=== PATIENT | female | born 1975 | race Caucasian/White ===

== ENCOUNTER 2017-05-14 05:04 | Emergency (ER) | payer BC ==
[2017-05-14] MEDS ORDERED: ALBUTEROL 2.5 MG/3 ML NEB SOL ONE ×2 (05:56→06:36)
[2017-05-14] MEDS ORDERED: IPRATROPIUM BROM 0.5MG/2.5ML ONE (05:56)
--- NOTE | 2017-05-14 06:22 | ER ---
Nurse's Notes [facility] Name: Alexandra Valdez Age: 41 yrs Sex: Female : 1975 Arrival Date: 05/14/2017 Time: 05:07 Bed 14 Private MD: Diagnosis: Asthma exacerbation. GERD Presentation: 05/14 05:10 Presenting complaint: Patient states: that in Jan she got sick with resp infection. Was fc seen by PCP and given Prednisone and antibiotics. She got better but just for a short time. When she got sick again she went to [place]. Was again told she had URI and given antibiotics, Flonase and inhaler. She continues to have cough, congestion, shortness of breath and hoarseness. Transition of care: patient was not received from another setting of care. Onset of symptoms was January 2017. Care prior to arrival: None. 05:10 Method Of Arrival: Ambulatory fc 05:10 Acuity: MAIKOL 4 fc Historical: - Allergies: 05:28 No Known Allergies; fc - Home Meds: 05:28 phentermine 37.5 mg oral tab 1 tab once daily [Active]; fc - PMHx: 05:28 None; fc - PSHx: 05:28 ; fc - Immunization history:: Last tetanus immunization: up to date Hepatitis A vaccine is not up to date. - Social history:: Smoking status: Patient uses tobacco products, denies chronic smoking, but will smoke occasionally, Patient uses alcohol, but reports only rare drinking. Screenin:29 Abuse screen: Denies threats or abuse. Nutritional screening: No deficits noted. Tuberculosis screening: No symptoms or risk factors identified. Fall Risk None identified. Assessment: 05:30 General: Appears in no apparent distress. comfortable, Behavior is calm, cooperative, aa1 appropriate for age. Pain: Denies pain. Neuro: Level of Consciousness is awake, alert, obeys commands, Oriented to person, place, time, situation. Cardiovascular: Heart tones S1 S2 present Rhythm is regular. Respiratory: Reports cough that is non-productive, since 2 months Airway is patent Respiratory effort is even, unlabored, Respiratory pattern is regular, symmetrical, Breath sounds are clear bilaterally. GI: No signs and/or symptoms were reported involving the gastrointestinal system. : No signs and/or symptoms were reported regarding the genitourinary system. EENT: No signs and/or symptoms were reported regarding the EENT system. Derm: Skin is intact, is healthy with good turgor, Skin is pink, warm \T\ dry. Musculoskeletal: Capillary refill < 3 seconds. 06:36 Reassessment: Patient appears in no apparent distress at this time. Patient is alert, aa1 oriented x 3, equal unlabored respirations, skin warm/dry/pink. Discussed d/c \T\ f/u instructions with pt; denies questions or concerns Patient states feeling better. Patient states symptoms have improved. Vital Signs: 05:10 BP 119 / 86; Pulse 92; Resp 18; Temp 97.8(O); Pulse Ox 93% on R/A; Weight 74.84 kg (R); fc Height 5 ft. 4 in. (162.56 cm) (R); Pain 0/10; 06:36 BP 121 / 82; Pulse 89; Resp 20; Pulse Ox 98% on R/A; aa1 05:10 Body Mass Index 28.32 (74.84 kg, 162.56 cm) ED Course: 05:07 Patient arrived in ED. es 05:10 Arm band placed on right wrist. Patient placed in an exam room, on a stretcher. fc 05:27 Triage completed. fc 05:29 Patient has correct armband on for positive identification. Bed in low position. Call fc light in reach. Side rails up X 1. 05:29 No provider procedures requiring assistance completed. fc 05:37 Destiny Coles, RN is Primary Nurse. aa1 05:52 X-ray completed. Portable x-ray completed in exam room. Patient tolerated procedure kw well. 05:52 Casey Barrett MD is Attending Physician. pkl 05:53 CXR XRAY In Process Unspecified. EDMS 06:05 Casey Barrett MD is Attending Physician. pkl 06:21 Maninder Ellison MD is Referral Physician. pkl 06:36 Patient did not have IV access during this emergency room visit. aa1 Administered Medications: 05:41 Drug: Albuterol - atroVENT (3:1) (2.5 mg - 0.5 mg) 3 ml Route: Nebulizer; aa1 06:35 Follow up: Response: No adverse reaction; Marked relief of symptoms aa1 06:21 Drug: Albuterol 2.5 mg Route: Inhalation; aa1 06:21 Drug: predniSONE 40 mg Route: PO; aa1 06:35 Follow up: Response: No adverse reaction; Marked relief of symptoms aa1 Outcome: 06:22 Discharge ordered by . kylee 06:36 Discharged to home ambulatory, with significant other. aa1 06:36 Condition: good 06:36 Condition: good 06:36 Condition: good 06:36 Discharge instructions given to patient, significant other, Instructed on discharge instructions, follow up and referral plans. medication usage, Demonstrated understanding of instructions, follow-up care, medications, Prescriptions given X 3. 06:38 Patient left the ED. aa1 Signatures: Dispatcher [employer] Destiny Larson RN RN aa1 Casey Barrett MD MD pkl Salyer, Edna es Chretien, Felicia RN RN Carmen Wallace
--- NOTE | 2017-05-14 06:22 | EDPHYS ---
Physician Documentation [facility] Name: Alexandra Valdez Age: 41 yrs Sex: Female : 1975 Arrival Date: 05/14/2017 Time: 05:07 Bed 14 Private MD: ED Physician Casey Barrett HPI: 05/14 06:16 This 41 yrs old Female presents to ER via Ambulatory with complaints of pkl Breathing Difficulty, Congestion, Laryngititis. 06:16 The patient has shortness of breath at rest. Onset: The symptoms/episode began/occurred pkl 2 month(s) ago, and became worse just prior to arrival. Associated signs and symptoms: Pertinent positives: non-productive cough, hoarseness . The patient has been recently seen by a physician: the patient's primary care provider, Angélica DALLAS. Historical: - Allergies: 05:28 No Known Allergies; fc - Home Meds: 05:28 phentermine 37.5 mg oral tab 1 tab once daily [Active]; fc - PMHx: 05:28 None; fc - PSHx: 05:28 ; fc - Immunization history:: Last tetanus immunization: up to date Hepatitis A vaccine is not up to date. - Social history:: Smoking status: Patient uses tobacco products, denies chronic smoking, but will smoke occasionally, Patient uses alcohol, but reports only rare drinking. ROS: 06:16 Eyes: Negative for injury, pain, redness, and discharge. pkl 06:16 ENT: Positive for hoarseness. 06:16 Neck: Negative for stiffness, acute changes. 06:16 Cardiovascular: Negative for chest pain. 06:16 Respiratory: Positive for cough, with no reported sputum, wheezing. 06:16 Abdomen/GI: Negative for abdominal pain, nausea, vomiting, and diarrhea. 06:16 Back: Negative for acute changes. 06:16 : Negative for urinary symptoms. 06:16 MS/extremity: Negative for acute changes. 06:16 Skin: Negative for rash. 06:16 Neuro: Negative for altered mental status. Exam: 06:16 Head/Face: Normocephalic, atraumatic. Eyes: Pupils equal round and reactive to light, pkl extra-ocular motions intact. Lids and lashes normal. Conjunctiva and sclera are non-icteric and not injected. Cornea within normal limits. Periorbital areas with no swelling, redness, or edema. ENT: Nares patent. No nasal discharge, no septal abnormalities noted. Tympanic membranes are normal and external auditory canals are clear. Oropharynx with no redness, swelling, or masses, exudates, or evidence of obstruction, uvula midline. Mucous membranes moist. Neck: Trachea midline, no thyromegaly or masses palpated, and no cervical lymphadenopathy. Supple, full range of motion without nuchal rigidity, or vertebral point tenderness. No Meningismus. Chest/axilla: Normal chest wall appearance and motion. Nontender with no deformity. No lesions are appreciated. Cardiovascular: Regular rate and rhythm with a normal S1 and S2. No gallops, murmurs, or rubs. Normal PMI, no JVD. No pulse deficits. 06:16 Respiratory: the patient does not display signs of respiratory distress, Respirations: normal, Breath sounds: bronchial sounds, that are mild, are scattered, rhonchi, that are mild, are scattered. 06:16 Abdomen/GI: Bowel sounds: normal, Palpation: abdomen is soft and non-tender, in all quadrants. 06:16 Back: Exam negative for acute changes. 06:16 : Exam negative for acute changes. 06:16 Musculoskeletal/extremity: Exam is negative for acute changes. 06:16 Skin: Exam negative for rash. 06:16 Neuro: Orientation: is normal, Mentation: is normal, Cranial nerves: grossly normal, Motor: is normal. Vital Signs: 05:10 BP 119 / 86; Pulse 92; Resp 18; Temp 97.8(O); Pulse Ox 93% on R/A; Weight 74.84 kg (R); fc Height 5 ft. 4 in. (162.56 cm) (R); Pain 0/10; 06:36 BP 121 / 82; Pulse 89; Resp 20; Pulse Ox 98% on R/A; aa1 05:10 Body Mass Index 28.32 (74.84 kg, 162.56 cm) fc MDM: 05:52 Patient medically screened. pkl 06:20 Data reviewed: vital signs, nurses notes, radiologic studies, plain films. pkl 06:22 Patient medically screened. pkl 05/14 05:38 Order name: CXR XRAY aa1 Administered Medications: 05:41 Drug: Albuterol - atroVENT (3:1) (2.5 mg - 0.5 mg) 3 ml Route: Nebulizer; aa1 06:35 Follow up: Response: No adverse reaction; Marked relief of symptoms aa1 06:21 Drug: Albuterol 2.5 mg Route: Inhalation; aa1 06:21 Drug: predniSONE 40 mg Route: PO; aa1 06:35 Follow up: Response: No adverse reaction; Marked relief of symptoms aa1 Disposition: 05/14/17 06:22 Discharged to Home. Impression: Asthma exacerbation. GERD. - Condition is Fair. - Prescriptions for Albuterol Sulfate 2.5 mg /3 mL (0.083 %) Inhalation Solution for Nebulization - inhale 1 unit by NEBULIZATION route every 8 hours As needed; 1 box. Protonix 40 mg Oral Tablet, Delayed Release (E.C.) - take 1 tablet by ORAL route once daily; 15 tablet. - Medication Reconciliation Form, Thank You Letter, Antibiotic Education, Prescription Opioid Use form. - Follow up: Maninder Ellison MD; When: 2 - 3 days; Reason: Re-evaluation by your physician. - Problem is new. - Symptoms have improved. Signatures: Dispatcher [employer] EDDestiny Poon RN RN aa1 Casey Barrett MD MD pkl Chretien, Felicia, RN RN
[2017-05-14] MEDS ORDERED: predniSONE 20 MG TAB ONE (06:37)
[2017-05-14 06:43] VITALS: TEMP 97.8
[2017-05-14 06:44] VITALS: BP 121/82; O2SAT 98
--- NOTE | 2017-05-14 09:05 | RAD REPORT ---
EXAM DESCRIPTION: RAD - Chest Single View - 05/14/2017 6:50 am CLINICAL HISTORY: Cough COMPARISON: None. TECHNIQUE: AP portable chest image was obtained 0548 hours the . FINDINGS: Lungs are clear. Heart and vasculature are normal. No measurable pleural effusion and no p neumothorax. No gross bony abnormality seen. No acute aortic findings suspected. IMPRESSION: No acute cardiopulmonary process.
== END 2017-05-14 06:38 | disposition home or self-care (01) ==
LOC: ER 05:04
DX: J45.901 Unspecified asthma with (acute) exacerbation (principal); K21.9 Gastro-esophageal reflux disease without esophagitis; Z72.0 Tobacco use
CPT/HCPCS: 71045; 94640; 99284; J7512

== ENCOUNTER 2019-11-07 00:24 | Emergency (ER) | payer BC ==
[2019-11-07] MEDS ORDERED: HYDROCODONE/APAP 5/325 MG TAB ONE (01:08)
[2019-11-07] MEDS ORDERED: MORPHINE 4 MG/ML SYR ONE (02:16)
--- NOTE | 2019-11-07 05:09 | ER ---
Nurse's Notes [facility] Name: Alexandra Valdez Age: 44 yrs Sex: Female : 1975 Arrival Date: 11/07/2019 Time: 00:28 Bed 24 Private MD: Diagnosis: Contusion right elbow Presentation: 11/06 00:40 Chief complaint: Patient states: she fell approx 30-45 minutes ago on her outstretched bb right arm and thinks she broke her elbow. Coronavirus screen: At this time, the client does not indicate any symptoms associated with coronavirus-19. Ebola Screen: No symptoms or risks identified at this time. Initial Sepsis Screen: Does the patient meet any 2 criteria? No. Patient's initial sepsis screen is negative. Does the patient have a suspected source of infection? No. Patient's initial sepsis screen is negative. Risk Assessment: Do you want to hurt yourself or someone else? Patient reports no desire to harm self or others. Onset of symptoms was November 07, 2019. 00:40 Method Of Arrival: Ambulatory bb 00:40 Acuity: MAIKOL 4 bb Triage Assessment: 00:42 Musculoskeletal: Capillary refill < 3 seconds, pt able to move right fingers, radial bb pulse palpable. Injury Description: fall. 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 Screenin:40 Abuse screen: Denies threats or abuse. Denies injuries from another. Nutritional sg screening: No deficits noted. Tuberculosis screening: No symptoms or risk factors identified. Never had TB. Fall Risk None identified. Assessment: 00:40 General: Appears in no apparent distress. well groomed, well developed, well nourished, sg Behavior is calm, cooperative, appropriate for age. General: Smells of alcohol. Pain: Complains of pain in right elbow Quality of pain is described as aching. Neuro: Level of Consciousness is awake, alert, obeys commands, Oriented to person, place, time, Facial symmetry appears normal. Cardiovascular: Capillary refill is brisk in bilateral fingers Patient's skin is warm and dry. Chest pain is denied. Respiratory: Airway is patent Respiratory effort is even, unlabored, Respiratory pattern is regular, symmetrical. GI: No signs and/or symptoms were reported involving the gastrointestinal system. : No signs and/or symptoms were reported regarding the genitourinary system. EENT: No signs and/or symptoms were reported regarding the EENT system. Derm: Skin is pink, warm \T\ dry. Musculoskeletal: Circulation, motion, and sensation intact. Range of motion: limited in right elbow Swelling present in right arm Reports pain in right arm. 00:46 Reassessment: awaiting evaluation by ERP, awaiting orders at this time, pt stated sg understanding, call light within reach, SRx1, bed in low and locked position. 02:02 Reassessment: at bedside re examining pt at this time, updated on xray results, sg pt continues to complain of pain and limited mobility upon exam by the ERP, a v/o for CT right elbow w/out contrast has been entered, and Morphine 4 mg IM to be administered for pt pain at this time, see EMAR. 04:39 Reassessment: Patient appears in no apparent distress at this time. Patient and/or fu family updated on plan of care and expected duration. Pain level reassessed. Patient is alert, oriented x 3, equal unlabored respirations, skin warm/dry/pink. Patient subsided after receiving Morphine Patient states feeling better. Vital Signs: 00:40 BP 109 / 82; Pulse 90; Resp 16 S; Temp 98.2(O); Pulse Ox 99% on R/A; Weight 90.72 kg bb (R); Height 5 ft. 4 in. (162.56 cm) (R); Pain 8/10; 02:00 BP 112 / 79; Pulse 82; Resp 16; Pulse Ox 100% on R/A; Pain 3/10; fu 03:00 BP 114 / 77; Pulse 75; Resp 15; Pulse Ox 95% on R/A; fu 04:30 BP 111 / 76; Pulse 75; Resp 16; Pulse Ox 94% on R/A; fu 00:40 Body Mass Index 34.33 (90.72 kg, 162.56 cm) ED Course: 00:28 Patient arrived in ED. cl3 00:31 Casey Barrett MD is Attending Physician. pkl 00:40 Arm band placed on. sg 00:40 Patient has correct armband on for positive identification. Bed in low position. Call sg light in reach. Side rails up X2. Pulse ox on. NIBP on. Elevated right arm. 00:41 Triage completed. bb 00:42 Ramakrishna Palm, RN is Primary Nurse. sg 00:43 Affected limb iced. 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 sg 00:45 No provider procedures requiring assistance completed. Sling applied to right arm. sg applied by pt/pt family NEEDLE LOOM OPERATOR HELPER. 01:13 Awaiting for x-ray. sg 01:17 Awaiting radiology results. sg 01:50 XRAY Elbow RIGHT 3 view In Process Unspecified. EDMS 02:[address] Scan. sg 03:17 Tim Mcneal, RN is Primary Nurse. fu 04:26 Elbow Right Wo Con In Process Unspecified. EDMS 05:15 Patient did not have IV access during this emergency room visit. fu Administered Medications: 01:00 Drug: [place] 5 mg-325 mg 1 tabs Route: PO; sg 02:00 Follow up: Response: No adverse reaction; Pain is unchanged, physician notified; RASS: sg Restless (+1) 02:09 Drug: morphine 4 mg Route: IM; Site: right deltoid; sg 03:08 Follow up: Response: No adverse reaction; Pain is decreased sg Outcome: 05:09 Discharge ordered by . pkl 05:20 Patient left the ED. mw2 05:23 Discharged to home ambulatory. fu 05:23 Condition: good 05:23 Discharge instructions given to patient, Instructed on discharge instructions, Demonstrated understanding of instructions, Prescriptions given X 1. Signatures: Dispatcher [employer] EDMS Ramakrishna Palm RN RN sg Lam, Pin, MD MD pkClaire Christine RN RN bb Umadhay, Felix, RN RN fu [place], MyKena mw2 Marley Alvarez cl3 Corrections: (The following items were deleted from the chart) 00:55 00:40 Pain: Complains of pain in right wrist Quality of pain is described as aching, sg sg 00:55 00:40 Musculoskeletal: Circulation, motion, and sensation intact. Range of motion: sg limited in right wrist Swelling present in right arm Reports pain in right arm sg
--- NOTE | 2019-11-07 05:10 | EDPHYS ---
Physician Documentation [facility] Name: Alexandra Valdez Age: 44 yrs Sex: Female : 1975 Arrival Date: 11/07/2019 Time: 00:28 Bed 24 Private MD: ED Physician Casey Barrett HPI: 11/06 00:54 This 44 yrs old Female presents to ER via Ambulatory with complaints of Arm pkl Injury. 00:55 The patient or guardian complains of injury. The complaints affect the right elbow. pkl Context: resulted from a fall. Onset: The symptoms/episode began/occurred just prior to arrival. 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 ROS: 00:55 Eyes: Negative for injury, pain, redness, and discharge, ENT: Negative for injury, pkl pain, and discharge, Neck: Negative for injury, pain, and swelling, Cardiovascular: Negative for chest pain, palpitations, and edema, Respiratory: Negative for shortness of breath, cough, wheezing, and pleuritic chest pain, Abdomen/GI: Negative for abdominal pain, nausea, vomiting, diarrhea, and constipation, Back: Negative for injury and pain, : Negative for injury, bleeding, discharge, and swelling. 00:55 MS/extremity: Positive for injury or acute deformity, pain, tenderness, of the right elbow. 00:55 Skin: Negative for rash. 00:55 Neuro: Negative for altered mental status. Exam: 00:55 Head/Face: Normocephalic, atraumatic. Eyes: Pupils equal round and reactive to light, pkl extra-ocular motions intact. Lids and lashes normal. Conjunctiva and sclera are non-icteric and not injected. Cornea within normal limits. Periorbital areas with no swelling, redness, or edema. ENT: Nares patent. No nasal discharge, no septal abnormalities noted. Tympanic membranes are normal and external auditory canals are clear. Oropharynx with no redness, swelling, or masses, exudates, or evidence of obstruction, uvula midline. Mucous membranes moist. Neck: Trachea midline, no thyromegaly or masses palpated, and no cervical lymphadenopathy. Supple, full range of motion without nuchal rigidity, or vertebral point tenderness. No Meningismus. Chest/axilla: Normal chest wall appearance and motion. Nontender with no deformity. No lesions are appreciated. Cardiovascular: Regular rate and rhythm with a normal S1 and S2. No gallops, murmurs, or rubs. Normal PMI, no JVD. No pulse deficits. Respiratory: Lungs have equal breath sounds bilaterally, clear to auscultation and percussion. No rales, rhonchi or wheezes noted. No increased work of breathing, no retractions or nasal flaring. Abdomen/GI: Soft, non-tender, with normal bowel sounds. No distension or tympany. No guarding or rebound. No evidence of tenderness throughout. Back: No spinal tenderness. No costovertebral tenderness. Full range of motion. Skin: Warm, dry with normal turgor. Normal color with no rashes, no lesions, and no evidence of cellulitis. Neuro: Awake and alert, GCS 15, oriented to person, place, time, and situation. Cranial nerves II-XII grossly intact. Motor strength 5/5 in all extremities. Sensory grossly intact. Cerebellar exam normal. Normal gait. 00:55 Musculoskeletal/extremity: Extremities: grossly normal except: noted in the right elbow: pain, tenderness. Vital Signs: 00:40 BP 109 / 82; Pulse 90; Resp 16 S; Temp 98.2(O); Pulse Ox 99% on R/A; Weight 90.72 kg bb (R); Height 5 ft. 4 in. (162.56 cm) (R); Pain 8/10; 02:00 BP 112 / 79; Pulse 82; Resp 16; Pulse Ox 100% on R/A; Pain 3/10; fu 03:00 BP 114 / 77; Pulse 75; Resp 15; Pulse Ox 95% on R/A; fu 04:30 BP 111 / 76; Pulse 75; Resp 16; Pulse Ox 94% on R/A; fu 00:40 Body Mass Index 34.33 (90.72 kg, 162.56 cm) bb MDM: 00:32 Patient medically screened. pkl 05:08 Data reviewed: vital signs, nurses notes, radiologic studies, CT scan, plain films. pkl 11/06 00:54 Order name: XRAY Elbow RIGHT 3 view sg 11/06 03:45 Order name: Elbow Right Wo Con EDMS 11/06 05:11 Order name: Celeste; Complete Time: 05:12 pkl Administered Medications: 01:00 Drug: [place] 5 mg-325 mg 1 tabs Route: PO; sg 02:00 Follow up: Response: No adverse reaction; Pain is unchanged, physician notified; RASS: sg Restless (+1) 02:09 Drug: morphine 4 mg Route: IM; Site: right deltoid; sg 03:08 Follow up: Response: No adverse reaction; Pain is decreased sg Disposition: 11/07/19 05:09 Discharged to Home. Impression: Contusion right elbow. - Condition is Stable. - Prescriptions for Diclofenac Sodium 75 mg Oral Tablet, Delayed Release (E.C.) - take 1 tablet by ORAL route 2 times per day; 20 tablet. - Medication Reconciliation Form, Thank You Letter, Antibiotic Education, Prescription Opioid Use form. - Follow up: Private Physician; When: 2 - 3 days; Reason: Re-evaluation by your physician. - Problem is new. - Symptoms have improved. Signatures: Dispatcher [employer] EDMS Ramakrishna Palm RN RN sg Lam, Pin, MD MD pkClaire Christine RN RN Darshan Quinn mw2 Corrections: (The following items were deleted from the chart) 04:21 02:02 CT RIGHT ELEBOW WO CONTRAST ordered. EDMN EDMS 04:22 03:20 CT RIGHT ELEBOW WO CONTRAST ordered. EDMN EDMS 05:20 05:09 11/07/2019 05:09 Discharged to Home. Impression: Contusion right elbow. Condition mw2 is Stable. Forms are Medication Reconciliation Form, Thank You Letter, Antibiotic Education, Prescription Opioid Use. Follow up: Private Physician; When: 2 - 3 days; Reason: Re-evaluation by your physician. Problem is new. Symptoms have improved. pkl
--- NOTE | 2019-11-07 15:32 | RAD REPORT ---
EXAM DESCRIPTION: CT - Elbow Right Wo Con - 11/07/2019 7:15 am CLINICAL HISTORY: 44 years Female, PAIN COMPARISON: None Available. TECHNIQUE: CT of the right elbow without IV contrast. Evaluation of the soft tissues and vascula ture is suboptimal due to lack of IV contrast. FINDINGS: Soft tissue: Mild soft tissue edema. No definite joint effusion. Bones: The distal humerus is intact. The proximal ulna is intact. The proximal radius and radial head are intact. IMPRESSION: 1. No acute fracture or dislocation. This exam was performed according to our departmental dose-optimization program, which includes autom ated exposure control, adjustment of the mA and/or kV according to patient size and/or use of iterati ve reconstruction technique. Electronically signed by: Bony Gaytan 11/07/2019 4:52 AM CDT Due to temporary technical issues with the PACS/Fluency reporting system, reports are being signed by the in house radiologist without review as a courtesy to ensure prompt reporting. The interpreting r adiologist is fully responsible for the content of the report.
--- NOTE | 2019-11-07 15:34 | RAD REPORT ---
EXAM DESCRIPTION: RAD - Elbow Right 3 View - 11/07/2019 1:50 am CLINICAL HISTORY: PAIN Elbow Right 3 View COMPARISON: None. FINDINGS: 3 radiographic views of the right elbow. No acute fracture or dislocation. Normal osseous mineralization. No definite joint effusion. IMPRESSION: 1. No acute fracture or dislocation. Electronically signed by: Bony Gaytan 11/07/2019 4:53 AM CDT Due to temporary technical issues with the PACS/Fluency reporting system, reports are being signed by the in house radiologist without review as a courtesy to ensure prompt reporting. The interpreting r adiologist is fully responsible for the content of the report.
[2019-11-07 15:55] VITALS: TEMP 98.2
[2019-11-07 15:58] VITALS: BP 111/76; O2SAT 94
== END 2019-11-07 05:20 | disposition home or self-care (01) ==
LOC: ER 00:24
DX: S50.01XA Contusion of right elbow, initial encounter (principal); W19.XXXA Unspecified fall, initial encounter
CPT/HCPCS: 73200; 96372; 99284

== ENCOUNTER 2022-10-11 21:17 | Inpatient (IN) | payer BC ==
[2022-10-11] MEDS ORDERED: ONDANSETRON 4 MG/2 ML VIAL ONE (22:09)
[2022-10-11] MEDS ORDERED: NA CHLORIDE 0.9% 1,000 ML ONE (22:09)
[2022-10-11] MEDS ORDERED: MORPHINE 4 MG/ML SYR ONE ×2 (22:09→23:40)
--- NOTE | 2022-10-11 22:12 | RAD REPORT ---
EXAM DESCRIPTION: US - Abdomen Exam Limited - 10/11/2022 10:01 pm CLINICAL HISTORY: Abd pain;Constipation COMPARISON: No comparisons FINDINGS: The gallbladder demonstrates sludge and extensive gallbladder stones. No pericholecystic f luid or gallbladder wall thickening. The common bile duct is normal measuring 4 mm. The liver demonstrates no findings of intrahepatic biliary dilatation. IMPRESSION: Cholelithiasis.
[2022-10-11 22:15] LABS: Absolute Lymphocytes (CBC) 3.1 K/uL (0.7-4.9); Lymphocytes % 26.9 % (15.3-44.8); MCV 93.8 fL (80-100); MPV 8.4 fL (7.6-11.3); Platelets 328 thou/uL (152-406); RBC Red Blood Cell Count 4.69 M/uL (3.86-4.86)
--- NOTE | 2022-10-11 22:30 | RAD REPORT ---
EXAM DESCRIPTION: CTAbdomen Pelvis W Contrast - 10/11/2022 10:21 pm CLINICAL HISTORY: Abdominal pain. ABD PAIN COMPARISON: No comparisons TECHNIQUE: Biphasic CT imaging of the abdomen and pelvis was performed with 100 ml non-ionic IV cont rast. All CT scans are performed using dose optimization technique as appropriate and may include automated exposure control or mA/KV adjustment according to patient size. FINDINGS: The lung bases are clear. The liver, spleen, pancreas, adrenal glands and kidneys are within normal limits. Gallbladder distens ion. No bowel obstruction, free air, free fluid or abscess. Small fat containing umbilical hernia. The dia endix is not identified as a discrete structure, however, no secondary findings of appendicitis are i dentified. No evidence of significant lymphadenopathy. No suspicious bony findings. IMPRESSION: No acute intra-abdominal or pelvic finding. Gallbladder distension.
[2022-10-11 22:35] LABS: Bilirubin Total 0.8 mg/dL (0.2-1.0); Potassium 3.8 mEq/L (3.5-5.1); Protein, Total 7.7 g/dL (6.4-8.2)
--- NOTE | 2022-10-11 22:51 | ER ---
Nurse's Notes [facility] Name: Alexandra Valdez Age: 46 yrs Sex: Female : 1975 Arrival Date: 10/11/2022 Time: 21:17 Bed 14 Private MD: Diagnosis: Other cholelithiasis without obstruction;Abdominal pain, unspecified-intractable Presentation: 10/11 21:36 Chief complaint: Patient states: severe sudden onset right upper abdominal pain lg3 radiating to back. denies N/V/D. Coronavirus screen: Client denies travel out of the [place] in the last 14 days. At this time, the client does not indicate any symptoms associated with coronavirus-19. Ebola Screen: No symptoms or risks identified at this time. Initial Sepsis Screen: Does the patient meet any 2 criteria? No. Patient's initial sepsis screen is negative. Does the patient have a suspected source of infection? No. Patient's initial sepsis screen is negative. Risk Assessment: Do you want to hurt yourself or someone else? Patient reports no desire to harm self or others. Onset of symptoms was October 11, 2022. 21:36 Method Of Arrival: Ambulatory lg3 21:36 Acuity: MAIKOL 3 lg3 Triage Assessment: 21:38 General: Appears in no apparent distress. uncomfortable, Behavior is calm, cooperative. lg3 Pain: Complains of pain in right upper quadrant and left upper quadrant Pain radiates to back Pain currently is 10 out of 10 on a pain scale. EENT: No deficits noted. No signs and/or symptoms were reported regarding the EENT system. Neuro: No deficits noted. Flores Agitation-Sedation Scale (RASS): +1 Restless Level of Consciousness is awake, alert, obeys commands, Oriented to person, place, time, situation. Cardiovascular: No deficits noted. Denies chest pain, shortness of breath, Capillary refill < 3 seconds Clubbing of nail beds is absent JVD is absent Patient's skin is warm and dry. Respiratory: No deficits noted. Airway is patent Respiratory effort is even, unlabored, Respiratory pattern is regular, symmetrical. GI: Abdomen is round non-distended, Reports lower abdominal pain, constipation, gaseousness. : No deficits noted. No signs and/or symptoms were reported regarding the genitourinary system. Derm: No deficits noted. No signs and/or symptoms reported regarding the dermatologic system. Skin is intact, is healthy with good turgor, Skin is dry, Skin is normal, Skin temperature is warm. Musculoskeletal: No deficits noted. No signs and/or symptoms reported regarding the musculoskeletal system. Circulation, motion, and sensation intact. Range of motion: intact in all extremities. 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 - Social history:: Smoking status: Patient reports the use of cigarette tobacco products, smokes one-half pack cigarettes per day, Patient uses alcohol, occasionally. Patient/guardian denies using street drugs. - Family history:: not pertinent. - Hospitalizations: : No recent hospitalization is reported. Screenin:[facility] Fall Risk Assessment (Adult) History of falling in the last 3 months, ha1 including since admission No falls in past 3 months (0 pts) Confusion or Disorientation No (0 pts) Intoxicated or Sedated No (0 pts) Impaired Gait No (0 pts) Mobility Assist Device Used No (0 pt) Altered Elimination No (0 pt) Score/Fall Risk Level 0 - 2 = Low Risk Oriented to surroundings, Maintained a safe environment, Educated pt \T\ family on fall prevention, incl call for assistance when getting out of bed. Abuse screen: Denies threats or abuse. Denies injuries from another. Nutritional screening: No deficits noted. Tuberculosis screening: No symptoms or risk factors identified. Assessment: 21:41 General: Appears comfortable, Behavior is calm, cooperative. Pain: Complains of pain in ha1 abdomen Pain does not radiate. Pain currently is 10 out of 10 on a pain scale. Quality of pain is described as throbbing, Pain began suddenly, Is continuous. Neuro: Level of Consciousness is awake, alert, obeys commands, Oriented to person, place, time, situation. Cardiovascular: Patient's skin is warm and dry. Respiratory: Airway is patent Respiratory effort is even, unlabored, Respiratory pattern is regular, symmetrical. GI: Abdomen is round non-distended, Bowel sounds present X 4 quads. Abd is soft and non tender X 4 quads. Reports upper abdominal pain, constipation. Musculoskeletal: Circulation, motion, and sensation intact. Range of motion: intact in all extremities. 22:20 Reassessment: Patient and/or family updated on plan of care and expected duration. Pain ha1 level reassessed. Patient is alert, oriented x 3, equal unlabored respirations, skin warm/dry/pink. pain 5/10 Patient states feeling better. Patient states symptoms have improved. 10/12 07:00 Reassessment: See [facility] documentation. REPORT RECEIVED FROM WENDI ALEXIS. db Vital Signs: 10/11 21:36 BP 142 / 92; Pulse 74; Resp 17 S; Temp 97.6(O); Pulse Ox 100% ; Weight 81.65 kg (R); lg3 Height 5 ft. 4 in. (R); Pain 10/10; 21:50 BP 149 / 108; Pulse 64; Resp 17 S; Pulse Ox 100% on R/A; ha1 22:20 BP 139 / 83; Pulse 60; Resp 15 S; Pulse Ox 99% on R/A; ha1 21:36 Body Mass Index 30.90 (81.65 kg, 162.56 cm) lg3 21:36 Pain Scale: Adult lg3 ED Course: 21:20 Patient arrived in ED. ag3 21:26 Jason Walker MD is Attending Physician. rn 21:35 Inserted saline lock: 22 gauge in left antecubital area, using aseptic technique. Blood ha1 collected. 21:38 Triage completed. lg3 21:38 Arm band placed on right wrist. lg3 21:41 Patient has correct armband on for positive identification. Placed in gown. Bed in low ha1 position. Call light in reach. Side rails up X 1. 21:55 Laura Reyes RN is Primary Nurse. ha1 21:55 CBC with Diff Sent. ha1 21:55 CMP Sent. ha1 21:55 Lipase Sent. ha1 22:01 US Abdomen Limited In Process Unspecified. EDMS 22:23 CT Abd/Pelvis - IV Contrast Only In Process Unspecified. EDMS 22:50 Lanette Lin MD is Hospitalizing Provider. rn 10/12 07:00 Appears to be sleeping. db 07:00 Awaiting bed assignment. db 07:00 Provided Education on: ADMISSION. db 07:00 No provider procedures requiring assistance completed. Patient admitted, IV remains in db place. Administered Medications: 10/11 21:55 Drug: NS 0.9% IV 1000 ml Route: IV; Rate: 1 bolus; Site: left antecubital; ha1 21:55 Drug: Ondansetron IVP 4 mg Route: IVP; Site: left antecubital; ha1 22:20 Follow up: Response: No adverse reaction ha1 21:58 Drug: morphine IVP or IV 4 mg Route: IVP; Infused Over: 4 mins; Site: left antecubital; ha1 22:20 Follow up: Response: No adverse reaction; Pain is decreased; RASS: Alert and Calm (0) ha1 23:34 Drug: morphine IVP or IV 4 mg Route: IVP; Infused Over: 4 mins; Site: left antecubital; ha1 10/12 00:00 Follow up: Response: No adverse reaction; Pain is decreased; RASS: Alert and Calm (0) ha1 10/11 23:45 Drug: Rocephin IV 1 grams Route: IV; Rate: calculated rate; Site: left antecubital; ha1 23:57 Follow up: Response: No adverse reaction ha1 23:57 Drug: metroNIDAZOLE IVPB 500 mg Volume: 100 ml; Route: IVPB; Rate: 200 ml/hr; Infused ha1 Over: 30 mins; Site: left antecubital; 10/12 00:30 Follow up: Response: No adverse reaction; IV Status: Completed infusion; IV Intake: ha1 100ml Medication: 07:00 VIS not applicable for this client. db Intake: 00:30 IV: 100ml; Total: 100ml. ha1 Outcome: 10/11 22:51 Decision to Hospitalize by Provider. rn 10/12 07:00 Admitted to ER Hold. Please see [facility] for further documentation. db Condition: stable Instructed on the need for admit. 08:26 Patient left the ED. db Signatures: Dispatcher [employer] EDMS Jason Walker MD MD rn Gomez, Alice ag3 Gibson, Lacie, RN RN lg3 Laura Reyes RN RN ha1 Tawny Macedo RN RN db Corrections: (The following items were deleted from the chart) 10/11 22:52 22:50 Reassessment: Patient and/or family updated on plan of care and expected ha1 duration. Pain level reassessed. Patient is alert, oriented x 3, equal unlabored respirations, skin warm/dry/pink. pain 5/10 Patient states feeling better. Patient states symptoms have improved. ha1
--- NOTE | 2022-10-11 22:51 | EDPHYS ---
Physician Documentation [facility] Name: Alexandra Valdez Age: 46 yrs Sex: Female : 1975 Arrival Date: 10/11/2022 Time: 21:17 Bed 14 Private MD: ED Physician Jason Walker HPI: 10/11 21:35 This 46 yrs old Female presents to ER via Unassigned with complaints of Abdominal Pain, rn Constipation. 21:36 The patient presents with abdominal pain that is diffuse. Onset: The symptoms/episode rn began/occurred this morning. The symptoms radiate to back. Associated signs and symptoms: Pertinent positives: constipation, Pertinent negatives: diarrhea, dysuria, fever, vomiting, vomiting blood. The symptoms are described as crampy. Modifying factors: The symptoms are alleviated by nothing, the symptoms are aggravated by nothing. Severity of pain: At its worst the pain was moderate in the emergency department the pain is unchanged. The patient has not experienced similar symptoms in the past. The patient has not recently seen a physician. Pt reports abd pain, diffuse, radiates to back, began this AM. Has been constipated "for weeks", tried suppository today that helped her pass some stool but "not normal amount". No fever/vomiting. Reports taking weight loss shots as well as phentermine. No hx of gallbladder problems or kidney stones. . 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 - Social history:: Smoking status: Patient reports the use of cigarette tobacco products, smokes one-half pack cigarettes per day, Patient uses alcohol, occasionally. Patient/guardian denies using street drugs. - Family history:: not pertinent. - Hospitalizations: : No recent hospitalization is reported. ROS: 21:36 Constitutional: Negative for fever, chills, and weight loss, Eyes: Negative for injury, rn pain, redness, and discharge, ENT: Negative for injury, pain, and discharge, Neck: Negative for injury, pain, and swelling, Cardiovascular: Negative for chest pain, palpitations, and edema, Respiratory: Negative for cough, wheezing, and pleuritic chest pain, Abdomen/GI: + abd pain and constipation Back: Negative for injury and pain, MS/Extremity: Negative for injury and deformity, Skin: Negative for injury, rash, and discoloration, Neuro: Negative for headache, weakness, numbness, tingling, and seizure. Exam: 21:36 Constitutional: This is a well developed, well nourished patient who is awake, alert, rn appears uncomfortable, pacing in triage room Head/Face: Normocephalic, atraumatic. Cardiovascular: Regular rate and rhythm. No pulse deficits. Respiratory: No increased work of breathing, no retractions or nasal flaring. Abdomen/GI: soft, + mild tenderness in all quadrants, no peritoneal signs. Skin: Warm, dry MS/ Extremity: Pulses equal, no cyanosis Neuro: Awake and alert, GCS 15 Vital Signs: 21:36 BP 142 / 92; Pulse 74; Resp 17 S; Temp 97.6(O); Pulse Ox 100% ; Weight 81.65 kg (R); lg3 Height 5 ft. 4 in. (R); Pain 10/10; 21:50 BP 149 / 108; Pulse 64; Resp 17 S; Pulse Ox 100% on R/A; ha1 22:20 BP 139 / 83; Pulse 60; Resp 15 S; Pulse Ox 99% on R/A; ha1 21:36 Body Mass Index 30.90 (81.65 kg, 162.56 cm) lg3 21:36 Pain Scale: Adult lg3 MDM: 21:26 Patient medically screened. rn 21:52 ED course: Pt reports "no menstrual period in more than a year" and that she is rn menopausal. . 22:48 Differential diagnosis: bowel obstruction, cholecystitis, Cholelithiasis, gastritis, rn gastroesophageal reflux disease, non-specific abd pain, pancreatitis, Peptic Ulcer Disease, Perf. Duodenal Ulcer. Data reviewed: vital signs, nurses notes, lab test result(s), radiologic studies, CT scan, ultrasound, and as a result, I will admit patient. Consideration of Admission/Observation Patient was admitted/placed on observation. Escalation of care including admission/observation considered. Management of patient was discussed with the following: Certified Nurse Practitioner: Dr. Mueller, will see patient in morning.. Independent interpretation of the following test(s) in the Emergency Department CT Scan: My interpretation is CT images without obstruction or impaction per my interpretation. Counseling: I had a detailed discussion with the patient and/or guardian regarding the historical points, exam findings, and any diagnostic results supporting the discharge/admit diagnosis, lab results, radiology results, the need for further work-up and treatment in the hospital. ED course: Pt with continued pain, ct and ultrasound show cholelithiasis with distension, normal CBD and LFTs, lipase 97, all could be secondary complications from her wegovy shots, but could also indicate early cholecystitis vs choledocholithiasis vs gallstone pancreatitis vs gallstone ileus. After discussion with Dr. Mueller, decision made to admit and updated patient. . 10/11 21:33 Order name: CBC with Diff; Complete Time: 22:32 rn 10/11 21:33 Order name: CMP; Complete Time: 22:41 rn 10/11 21:33 Order name: Lipase; Complete Time: 22:41 rn 10/11 21:33 Order name: Urinalysis w/ reflexes; Complete Time: 23:34 rn 10/11 23:42 Order name: Basic Metabolic Panel EDMS 10/11 23:42 Order name: Basic Metabolic Panel EDMS 10/11 23:42 Order name: Basic Metabolic Panel EDMS 10/11 23:42 Order name: Basic Metabolic Panel EDMS 10/11 23:42 Order name: Magnesium EDMS 10/11 23:42 Order name: Magnesium EDMS 10/11 23:42 Order name: CBC with Automated Diff EDMS 10/11 23:42 Order name: CBC with Automated Diff EDMS 10/11 23:42 Order name: CBC with Automated Diff EDMS 10/11 23:42 Order name: CBC with Automated Diff EDMS 10/11 23:42 Order name: Magnesium EDMS 10/11 23:42 Order name: Magnesium EDMS 10/11 23:43 Order name: Urinalysis w/ reflexes EDMS 10/11 21:33 Order name: CT Abd/Pelvis - IV Contrast Only; Complete Time: 22:32 rn 10/11 21:33 Order name: US Abdomen Limited; Complete Time: 22:32 rn 10/11 23:42 Order name: CONS Physician Consult EDMI 10/11 23:42 Order name: CONS Physician Consult EDMI 10/11 23:42 Order name: 60g Consistent Carbohydrate (ADA 1800/1999) EDMI 10/11 23:42 Order name: NPO EDMI 10/11 21:33 Order name: IV Saline Lock; Complete Time: 21:55 rn 10/11 21:33 Order name: Labs collected and sent; Complete Time: 21:55 rn Administered Medications: 21:55 Drug: NS 0.9% IV 1000 ml Route: IV; Rate: 1 bolus; Site: left antecubital; ha1 21:55 Drug: Ondansetron IVP 4 mg Route: IVP; Site: left antecubital; ha1 22:20 Follow up: Response: No adverse reaction ha1 21:58 Drug: morphine IVP or IV 4 mg Route: IVP; Infused Over: 4 mins; Site: left antecubital; ha1 22:20 Follow up: Response: No adverse reaction; Pain is decreased; RASS: Alert and Calm (0) ha1 23:34 Drug: morphine IVP or IV 4 mg Route: IVP; Infused Over: 4 mins; Site: left antecubital; ha1 10/12 00:00 Follow up: Response: No adverse reaction; Pain is decreased; RASS: Alert and Calm (0) 1 10/11 23:45 Drug: Rocephin IV 1 grams Route: IV; Rate: calculated rate; Site: left antecubital; ha1 23:57 Follow up: Response: No adverse reaction ha1 23:57 Drug: metroNIDAZOLE IVPB 500 mg Volume: 100 ml; Route: IVPB; Rate: 200 ml/hr; Infused ha1 Over: 30 mins; Site: left antecubital; 10/12 00:30 Follow up: Response: No adverse reaction; IV Status: Completed infusion; IV Intake: ha1 100ml Disposition Summary: 10/11/22 22:51 Hospitalization Ordered Hospitalization Status: Inpatient Admission rn Provider: Lanette Lin rn Condition: Stable rn Problem: new rn Symptoms: have improved rn Bed/Room Type: Standard rn Location: Intensive Care Unit(10/12/22 07:45) dw Room Assignment: 7-(10/12/22 07:45) dw Diagnosis - Other cholelithiasis without obstruction rn - Abdominal pain, unspecified - intractable rn Forms: - Medication Reconciliation Form rn - SBAR form rn - Leadership Thank You Letter rn Signatures: Dispatcher [employer] Rama Donahue, RN RN dw Jason Walker MD MD rn Basinger, Emily, RN RN eb1 Kiera Brantley RN RN lg3 Jose Chavez RN RN as6 Laura Reyes RN RN ha1 Corrections: (The following items were deleted from the chart) 00:06 10/11 22:51 Telemetry/MedSurg (Inpatient) rn eb1 10/12 00:06 10/11 22:51 rn eb1 10/12 00:07 00:06 [facility] ER HOLD eb1 eb1 00:07 00:06 ERHOLD- eb1 eb1 01:09 00:07 Telemetry/MedSurg (Inpatient) eb1 eb1 01:09 00:07 eb1 eb1 07:45 01:09 [facility] ER HOLD eb1 dw 07:45 01:09 ERHOLD- eb1 dw
[2022-10-11 23:29] LABS: Urine Bilirubin NEGATIVE (Negative); Urine Blood Negative (Negative); Urine Clarity Clear (Clear); Urine Color Light-Yellow (Yellow); Urine Glucose NEGATIVE (Negative); Urine Protein NEGATIVE (Negative); Urine Urobilinogen Normal (Normal)
--- NOTE | 2022-10-11 23:31 | P.HP ---
Certification for Inpatient Patient admitted to: Inpatient With expected LOS: <2 Midnights Patient will require the following post-hospital care: None Practitioner: I am a practitioner with admitting privileges, knowledge of patient current condition, hospital course, and medical plan of care. Services: Services provided to patient in accordance with Admission requirements found in Title 42 Section 412.3 of the Code of Federal Regulations Patient History Date of Service: 10/12/22 Reason for admission: Abdominal pain History of Present Illness: 46-year-old female presents to the emergency room with abdominal pain and constipation. She reports abdominal pain is right upper quadrant radiates to her back. She reports mild nausea, she reports symptoms started today, she denies vomiting, fever, diarrhea, bloody stools. She reports nothing makes her symptoms worse or better. She reports on arrival to the emergency room right upper quadrant pain was a 10 out of 10 with as needed analgesics is right upper quadrant pain 2 out of 10. She reports feeling constipated for weeks, she reports recently taken phentermine as well as weight loss shots. Plan to admit for - Other cholelithiasis without obstruction Abdominal pain, unspecified - intractable. Laboratory evaluation leukocytosis WBCs 11.40, mild left shift at 78.6, glucose 123, calcium 8.2, UA negative, lipase elevated at 97, CT of the abdomen pelvis IMPRESSION: No acute intra-abdominal or pelvic finding.Gallbladder distension. Abdominal ultrasound The liver demonstrates no findings of intrahepatic biliary dilatation. IMPRESSION: Cholelithiasis. Allergies No Known Allergies Allergy (Unverified 01/02/13 08:24) Home Medications: Multivit No46/Iron/Folate6/Dha [Prenate Essential Softgel] 1 PO DAILY 01/02/13 - Past Medical/Surgical History Diabetic: No -: perimenopausal -: section --07/10/1999 Psychosocial/ Personal History: - Social History Smoking Status: Current every day smoker Alcohol use: No CD- Drugs: No Caffeine use: Yes Review of Systems 10-point ROS is otherwise unremarkable Physical Examination - Physical Exam General: Alert, Oriented x3, Mild distress HEENT: Atraumatic, Normocephalic, PERRLA Neck: Supple, 2+ carotid pulse no bruit, JVD not distended Respiratory: Clear to auscultation bilaterally, Normal air movement Cardiovascular: No edema, Normal pulses, Regular rate/rhythm Capillary refill: <2 Seconds Gastrointestinal: Normal bowel sounds, Other (RUQ tenderness) Musculoskeletal: No clubbing, No swelling Integumentary: No rashes, No breakdown Neurological: Normal speech, Normal strength at 5/5 x4 extr, Cranial nerves 3-12 intact - Studies Laboratory Data (last 24 hrs) 10/11/22 10/11/22 21:53 21:53 WBC 11.40 H Hgb 14.7 Hct 44.0 Plt Count 328 Sodium 140 Potassium 3.8 BUN 11 Creatinine 1.08 H Glucose 136 H Total Bilirubin 0.8 AST 13 L ALT 27 Alkaline Phosphatase 66 Lipase 97 H Assessment and Plan - Plan Assessment plan other cholelithiasis without obstruction Abdominal pain, unspecified - intractable Hypocalcemia Mild pancreatitis Assessment plan ther cholelithiasis without obstruction Abdominal pain, unspecified - intractable Mild pancreatitis Surgery consult GI consult for possible MRCP evaluation IV antibiotics, Flagyl Cipro as needed analgesics morphine, antiemetics, Zofran Phenergan Laboratory evaluation leukocytosis WBCs 11.40, mild left shift at 78.6, glucose 123, UA negative, lipase elevated at 97, CT of the abdomen pelvis IMPRESSION: No acute intra-abdominal or pelvic finding. Gallbladder distension. Abdominal ultrasound The liver demonstrates no findings of intrahepatic biliary dilatation. IMPRESSION: Cholelithiasis Hypocalcemia calcium 8.2 Trend electrolytes replace as needed Diet n.p.o Full code DVT Lovenox. Discharge Plan: Home Plan to discharge in: 48 Hours - Advance Directives Does patient have a Living Will: No Does patient have a Durable POA for Healthcare: No - Code Status/Comfort Care Code Status: Full Code Physician Review: Patient Assessed, Agree with Above Assessment and Plan Critical Care: No Time Spent Managing Pts Care (In Minutes): 50
[2022-10-11 23:32] LABS: Specific Gravity > 1.035 (1.005-1.030)
[2022-10-11] MEDS ORDERED: ONDANSETRON 4 MG/2 ML VIAL IV PRN (23:40)
[2022-10-11] MEDS ORDERED: ZOLPIDEM TARTRATE 5 MG TABLET PO PRN (23:40)
[2022-10-11] MEDS ORDERED: CEFTRIAXONE 1000 MG/VIAL ONE (23:56)
[2022-10-11] MEDS ORDERED: NA CHLORIDE 0.9% 50 ML ONE (23:56)
[2022-10-12 02:36] VITALS: BMI 29.0
[2022-10-12 03:51] LABS: Absolute Lymphocytes (CBC) 1.7 K/uL (0.7-4.9); Hematocrit 38.3 % (36.0-45.0); Lymphocytes % 14.5 % (15.3-44.8); MCV 93.9 fL (80-100); MPV 8.3 fL (7.6-11.3); Platelets 276 thou/uL (152-406); RBC Red Blood Cell Count 4.09 M/uL (3.86-4.86)
[2022-10-12] MEDS ORDERED: ONDANSETRON 4 MG/2 ML VIAL IV PRN (04:00)
[2022-10-12 04:02] LABS: Magnesium 2.1 mg/dL (1.6-2.4)
[2022-10-12] MEDS ORDERED: MORPHINE 4 MG/ML SYR IV ONE (04:21)
[2022-10-12] MEDS ORDERED: ONDANSETRON 4 MG/2 ML VIAL IV ONE (04:22)
[2022-10-12] MEDS ORDERED: PROMETHAZINE INJ 25 MG/ML AMP IV PRN (04:46)
[2022-10-12] MEDS: NA CHLORIDE 0.9% 1,000 ML IV SCH ×3 (05:05→18:05)
[2022-10-12] MEDS: CIPROFLOXACIN 400mg IV 400 MG/200 ML BAG IV SCH ×2 (05:05→09:00)
[2022-10-12] MEDS ORDERED: NA CHLORIDE 0.9% 1,000 ML ONE (05:43)
[2022-10-12] MEDS ORDERED: CIPROFLOXACIN 400mg IV 400 MG/200 ML BAG IV ONE (05:43)
[2022-10-12] MEDS: METRONIDAZOLE 500mg IVPB 500 MG/100 ML BAG IV SCH ×2 (07:58→09:00)
[2022-10-12] MEDS ORDERED: METRONIDAZOLE 500mg IVPB 500 MG/100 ML BAG IV ONE (08:06)
[2022-10-12] MEDS: MORPHINE 4 MG/ML SYR IV PRN ×3 (08:41→23:04)
[2022-10-12] MEDS: ENOXAPARIN 40 MG/0.4 ML SQ SCH (08:43)
[2022-10-12] MEDS: ONDANSETRON 4 MG/2 ML VIAL IV PRN ×3 (08:44→23:04)
[2022-10-12] MEDS ORDERED: CEFTRIAXONE 1,000 MG in NA CHLORIDE 0.9% 50 ML IVPB SCH (09:00)
--- NOTE | 2022-10-12 12:28 | RAD REPORT ---
EXAM DESCRIPTION: MRI - Cholangiogram - 10/12/2022 11:33 am CLINICAL HISTORY: Pancreatitis Abdominal pain COMPARISON: Abdomen Exam Limited dated 10/11/2022; Abdomen Pelvis W Contrast dated 10/11/2022 FINDINGS: Three-dimensional MRCP was performed using maximum intensity projection reconstruction on the same work station. No intrahepatic biliary tree dilatation is seen. The common bile duct is normal caliber without evide nce of retained stone, stricture or mass. The pancreatic duct is not pathologically dilated. The gallbladder is distended with several stones noted. There is also evidence of pericholecystic flu id. Limited T2 sequences through the abdomen demonstrates no bulky adenopathy, significant free fluid or abscess. IMPRESSION: Distended gallbladder is seen with surrounding fluid suggesting acute cholecystitis. HID A scan could be obtained further evaluation is clinically desired. No pathologic biliary tree abnormality. Common bile duct is not pathologically dilated.
[2022-10-12] MEDS: PIPER TAZO 3.375 GM in NA CHLORIDE 0.9% 100 ML IV SCH ×2 (12:59→20:37)
--- NOTE | 2022-10-12 14:30 | CON ---
Date of Consultation: 10/12/2022 Diagnoses: Acute abdominal pain, epigastric pain, cholelithiasis, pancreatitis. History Of Present Illness: This is the case of a 46-year-old patient, who comes to us with nausea, vomiting, epigastric right upper quadrant pain radiating to the back for 1 day of duration. The romario ent denies any trauma, any dysuria, hematuria, hematochezia, melena, any recent traveling out of the country, any family member sick at home. Review of Systems: Ten points otherwise unremarkable. Allergies: NONE. Home Medications: Wegovy. Past Medical History: Endometriosis. Past Surgical History: C-sections. Social History: The patient smokes half a pack a day. The patient advised the importance of smoking cessation. She uses alcohol just occasionally. Physical Examination: Vital Signs: Stable. General: The patient is awake, alert. HEENT: Pupils are equal and reactive. Anicteric. Neck: Supple. Chest: Clear. Abdomen: Epigastric right upper quadrant tenderness. Lower abdomen soft and depressible. No perito nitis. Breasts: Deferred. Pelvic: Deferred. Rectal: Deferred. Extremities: Good capillary refill. Laboratory Data: Blood work shows WBC count of 11.6, hemoglobin of 13.1, and platelets of 276. Pota ssium is 4.0, lipase 97, total bilirubin of 0.8, alkaline phos is 66, nitrate is negative. Abdominal ultrasound and CT scan interpreted by Dr. Paige as cholelithiasis. They said it demonstrates sludge and extensive gallbladder stones. CAT scan of the abdomen and pelvis shows umbilical hernia, gallbla dder wall distention. Assessment: This is a 46-year-old patient with an umbilical hernia, an acute cholecystitis, symptoma tic cholelithiasis, and gallstone pancreatitis as a possibility. Plan: The patient fully explained the benefits, alternatives, and risks of laparoscopic, possible op en cholecystectomy, umbilical hernia repair, which include, but not limited to infection, bleeding, d amage to adjacent structures, anesthesia complication, choledocholithiasis, bile leak, pancreatitis, KS, and even . She also understands this may not relieve any symptoms. She might need more haresh n one surgical intervention. She also has an incisional hernia in the umbilical region. The patient has multiple procedures in the past. This might have to repair at the same time. She also has an M [employer] pending to rule out any common bile duct stones. If that is negative, then we will proceed with surgical intervention. JOAQUÍN/DESIREE Voice ID: [id number] Report ID: [id number]
[2022-10-13] MEDS: NA CHLORIDE 0.9% 1,000 ML IV SCH ×4 (00:45→23:30)
[2022-10-13] MEDS: PIPER TAZO 3.375 GM in NA CHLORIDE 0.9% 100 ML IV SCH ×3 (03:56→20:52)
[2022-10-13 07:19] LABS: Absolute Lymphocytes (CBC) 1.6 K/uL (0.7-4.9); Hematocrit 38.9 % (36.0-45.0); Lymphocytes % 20.4 % (15.3-44.8); MCV 93.7 fL (80-100); Platelets 235 thou/uL (152-406); RBC Red Blood Cell Count 4.15 M/uL (3.86-4.86)
[2022-10-13 07:36] LABS: Bilirubin Total 1.4 mg/dL (0.2-1.0); Potassium 3.9 mEq/L (3.5-5.1); Protein, Total 6.1 g/dL (6.4-8.2)
[2022-10-13] MEDS: ENOXAPARIN 40 MG/0.4 ML SQ SCH (08:30)
[2022-10-13] MEDS ORDERED: KCL 20 MEQ/100 mL IVPB 20 MEQ/100 ML BAG IV SCH (09:00)
[2022-10-13] MEDS ORDERED: dexAMETHasone 10 MG/ML VIAL ONE (11:48)
[2022-10-13] MEDS ORDERED: FENTANYL CITR 100 MCG/2 ML ONE (11:48)
[2022-10-13] MEDS ORDERED: LIDOCAINE 2% MPF 5 ML VIAL ONE (11:48)
[2022-10-13] MEDS ORDERED: ROCURONIUM 50 MG/5 ML VIAL IV ONE (11:48)
[2022-10-13] MEDS ORDERED: propofoL 200 MG/20 ML VIAL IV ONE (11:48)
[2022-10-13] MEDS ORDERED: KETOROLAC 30 MG/ML INJ ONE (11:49)
[2022-10-13] MEDS ORDERED: MIDAZOLAM HCL 2 MG/2 ML INJ ONE (11:49)
[2022-10-13] MEDS ORDERED: ONDANSETRON 4 MG/2 ML VIAL ONE (11:54)
[2022-10-13] MEDS ORDERED: Ringers Lactate 1,000 ML IV ONE (12:45)
--- NOTE | 2022-10-13 15:08 | P.BOP ---
Preoperative diagnosis: gallstone pancreatitis, symptomatic cholelithiasis, umbilical hernia Postoperative diagnosis: same Primary procedure: 1. Laparoscopic cholecystectomy Secondary procedure: 2. umbilical hernia repair Internet Sales Representative: Debi Saravia (Boy) Estimated blood loss: <10cc Specimen: GB, hernia sac Findings: inflammed distended GB Anesthesia: General Complications: None Drain(s): CANDIDO drain Transferred to: Recovery Room Condition: Good
[2022-10-13] MEDS: HYDROMORPHONE HCL 1 MG/ML INJ ONE ×2 (15:30→15:36)
[2022-10-13] MEDS: HYDROCODONE/APAP 5/325 MG TAB PO PRN ×2 (18:46→23:29)
--- NOTE | 2022-10-13 19:15 | OP ---
Date of Procedure: 10/13/2022 Surgeon: Uriel Mueller MD Preoperative Diagnoses: Gallstone pancreatitis, acute cholecystitis, symptomatic cholelithiasis, umb ilical hernia. Postoperative Diagnoses: Gallstone pancreatitis, acute cholecystitis, symptomatic cholelithiasis, um bilical hernia. Procedures: Laparoscopic cholecystectomy and open repair of tender umbilical hernia. Anesthesia: General plus local. Complications: None. Findings: Distended edematous gallbladder with pericholecystic fluid. Patient also has umbilical he rnia. Estimated Blood Loss: Less than 10 cc. Indication For Procedure: This is the case of a 46-year-old patient who comes to us with acute abdom inal pain, diagnosed with a gallstone pancreatitis, acute cholecystitis, symptomatic cholelithiasis, also umbilical hernia. Patient had an MRCP done due to increased lipase. MRCP failed to show any st ones in the common bile duct. The benefits, alternatives, and risks of laparoscopic, possible open c holecystectomy with repair of tender umbilical hernia were fully explained to the patient which inclu de, but not limited to, infection, bleeding, damage to adjacent structures, anesthesia complication, choledocholithiasis, bile leak, pancreatitis, SC, and even . She also understands this may not relieve any symptoms. She might need more than one surgical intervention. She also understands the chance of recurrence of umbilical hernia and the importance of losing some weight. She signed the co nsent. Description Of Procedure: Patient was brought to the operating room, placed in supine position. Ane sthesia was done without complication. Abdominal area was prepped and draped in sterile fashion. A local anesthesia was applied followed by sharp incision of the skin in the periumbilical region. Inc ision was carried down until we found the umbilical hernia. It was having incarcerated omentum throu gh it. It was carefully ligated, making sure there was no bleeding when the omentum was retracted. Hernia sac was removed. Fascial edges were cleaned. Then we proceeded to place Vicryl #1 inside the fascia. Sobia trocar was carefully introduced. Pneumoperitoneum was obtained. I placed 3 more tr ocars, 5 mm each one of them in epigastric, right upper quadrant area under direct visualization. Th e gallbladder looked distended and inflamed. I might have to put an Endo needle to decompress the ga llbladder in order for me to even grasp the gallbladder. The Endo needle was placed under direct vis ualization. Gallbladder content was aspirated and the needle was removed under direct visualization. Grasper was placed in the fundus of the gallbladder, another grasper in the infundibulum, retractin g the gallbladder in the inferolateral fashion exposing the triangle of Calot, and obtaining critical view. Cystic duct and cystic artery were clearly isolated, free circumferentially and a connection between those and the gallbladder were clearly identified. I proceeded to ligate those by using at l east 3 clips proximal, 1 clip distal, ligation in the middle. Same was done with the cystic artery. No bile leak. No bleeding. The gallbladder was removed from the liver using Bovie cauterizer and r emoved from abdominal cavity using EndoCatch through the umbilical incision. Area was inspected once again. No bile leak. No bleeding. At that moment, I proceeded to remove the trocars under direct vision, deflated pneumoperitoneum, closed the fascia with #1 Vicryl, irrigated subcutaneous tissue, c losed the fascia and the umbilical hernia with #1 Vicryl. Irrigated subcutaneous tissue, closed that with 3-0 chromic and then the skin with caitie. Sponge count and instrument counts were correct. I have to say that due to the inflammation on the right upper quadrant and the infection of the gallb ladder, I left a CANDIDO drain. The CANDIDO drain was left in the right upper quadrant exiting through one of the trocar site and secured that in place with 3-0 nylon. Sterile dressings were placed over the are a. Sponge count and instrument counts were correct. Patient sent to Recovery in stable condition. JOAQUÍN/TESSL Voice ID: [id number] Report ID: [id number]
[2022-10-13] MEDS: MORPHINE 4 MG/ML SYR IV PRN (20:53)
[2022-10-13] MEDS: ONDANSETRON 4 MG/2 ML VIAL IV PRN (20:54)
[2022-10-13 22:43] VITALS: O2SAT 96
[2022-10-14] MEDS: MORPHINE 4 MG/ML SYR IV PRN ×2 (01:37→05:50)
[2022-10-14] MEDS: ONDANSETRON 4 MG/2 ML VIAL IV PRN ×2 (01:37→05:49)
[2022-10-14] MEDS: PIPER TAZO 3.375 GM in NA CHLORIDE 0.9% 100 ML IV SCH (04:56)
[2022-10-14] MEDS: NA CHLORIDE 0.9% 1,000 ML IV SCH (04:56)
[2022-10-14 05:22] VITALS: BP 110/71; TEMP 97.9
[2022-10-14 06:30] LABS: Lymphocytes % 8.1 % (15.3-44.8); MCV 93.2 fL (80-100); MPV 8.4 fL (7.6-11.3); Platelets 252 thou/uL (152-406); RBC Red Blood Cell Count 4.18 M/uL (3.86-4.86)
[2022-10-14 06:45] LABS: Magnesium 2.2 mg/dL (1.6-2.4); Potassium 3.8 mEq/L (3.5-5.1)
--- NOTE | 2022-10-14 08:07 | P.PN ---
Subjective Date of Service: 10/13/22 Chief Complaint: DANIS>RUQ pain, GS pancreatitis, cholelithiasis, cholecystitis Review of Systems Gastrointestinal: Abdominal Pain Physical Examination - Vital Signs Temperature: 97.9 F Blood Pressure: 110/71 Pulse: 69 Respirations: 16 Pulse Ox (%): 95 Assessment And Plan - Current Problems (Diagnosis) (1) Epigastric abdominal pain Current Visit: Yes Status: Acute (2) RUQ abdominal pain Current Visit: Yes Status: Acute (3) Gallstone pancreatitis Current Visit: Yes Status: Acute (4) Cholelithiasis Current Visit: Yes Status: Acute (5) Cholecystitis Current Visit: Yes Status: Acute (6) Abnormal magnetic resonance cholangiopancreatography (MRCP) Current Visit: Yes Status: Acute Comment: GS in GB, but none in biliary tree. Fluid around the GB, indicative of cholecystitis - Plan REC: 1) IVFs & IV antibiotics 2) prn pain medications 3) lap shea planned by surgery for today Physician Review: Patient Assessed, Agree with Above Assessment and Plan
[2022-10-14] MEDS ORDERED: POTASSIUM CL SA 10 MEQ TAB PO ONE (09:00)
[2022-10-14 09:02] LABS: Blood Morphology Comment NOT SEEN (NOT SEEN); Platelet Estimate ADEQ
--- NOTE | 2022-10-14 11:48 | P.PN ---
Subjective Date of Service: 10/14/22 Chief Complaint: DANIS>RUQ pain, GS pancreatitis, cholelithiasis, cholecystitis Subjective: Improving (Patient feels well, no issues) Physical Examination - Vital Signs Temperature: 97.9 F Blood Pressure: 110/71 Pulse: 69 Respirations: 16 Pulse Ox (%): 95 - Physical Exam General: Alert, In no apparent distress, Cooperative Neck: Supple Gastrointestinal: Other (soft, mild appropriate TTP, ND, incisions clean and dry, CANDIDO serosanguanous) Integumentary: Other Assessment And Plan - Current Problems (Diagnosis) (1) Gallstone pancreatitis Current Visit: Yes Status: Acute Plan: Patient is a 46-year-old female status post laparoscopic cholecystectomy for gallstone pancreatitis on 10/14/2022 -Patient doing well from a surgical standpoint no acute issues overnight -Pain well controlled with current pain medication regimen -CANDIDO drain teaching reiterated with patient -Postoperative wound care as well as dietary management showering, activity level lifting restrictions driving restrictions reviewed with patient -Patient to follow-up with Dr. Mueller on Sunday Physician Review: Patient Assessed, Agree with Above Assessment and Plan
--- NOTE | 2022-10-15 20:34 | P.PN ---
Subjective Date of Service: 10/14/22 Chief Complaint: DANIS>RUQ pain, GS pancreatitis, cholelithiasis, cholecystitis Subjective: Improving (S/p lap shea yesterday. Improving.) Physical Examination - Vital Signs Temperature: 97.9 F Blood Pressure: 110/71 Pulse: 69 Respirations: 16 Pulse Ox (%): 95 Assessment And Plan - Current Problems (Diagnosis) (1) Epigastric abdominal pain Status: Acute (2) RUQ abdominal pain Status: Acute (3) Gallstone pancreatitis Status: Acute (4) Cholelithiasis Status: Acute (5) Cholecystitis Status: Acute (6) Abnormal magnetic resonance cholangiopancreatography (MRCP) Status: Acute Comment: GS in GB, but none in biliary tree. Fluid around the GB, indicative of cholecystitis - Plan REC: 1) IVFs & IV antibiotics 2) prn pain medications 3) diet and discharge as per surgery Physician Review: Patient Assessed, Agree with Above Assessment and Plan
--- NOTE | 2022-10-16 13:18 | CON ---
Date of Consultation: 10/12/2022 Reason For Consultation: Gallstone pancreatitis with midepigastric and right upper quadrant pain and positive MRCP. History Of Present Illness: The patient is a 46-year-old white female with history of x2. Patient admitted to the hospital with midepigastric greater than right upper quadrant pain, also will e reported constipation. Patient found on CT scan to have gallbladder distention. Abdominal ultraso und reveals evidence of cholelithiasis . MRCP revealed gallstones in gallbladder with fluid around the gallbladder. No stones in common bile duct. The patient also notes recent weight loss w ith a medicine called shots for weight loss. She has lost a significant amount of weight on these weight loss shots and this may have led to her gallbladder issues . Past Medical History: Significant C-sections, also perimenopausal. She has had x2. Home Medications: Include vitamin. Allergies: NKDA. Social History: She is , 2 kids. Tobacco, half pack per day. Alcohol occasionally. Social drinker. Father alive and well. Mother alive with hypothyroidism and Gallbladder disease leading to laparoscopic cholecystectomy in her mother. Review of Systems: The patient has midepigastric right upper quadrant pain with weight loss with shots, she l ost at least 10 to 20 pounds it appears with that. She is not sure of exact weight loss. She report s the midepigastric right upper quadrant pain has been present for a week and markedly worse over the past 24 hours, especially after 8 p.m. yesterday after eating spaghetti. She denies any hematemesis , coffee-grounds emesis, hematuria, dysuria, polydipsia, melena, hematochezia, epistaxis, muscle ache s, joint aches, backaches, though she did have pain initially with the pain that radiated to her back , she reports and she could not lie on her back in the middle of her back, but this has gotten better since admission. No chest pain, shortness of breath, seizure, syncope, depression, anxiety. Physical Examination: Vitals Signs: She is 5.6, , temperature of 97.9 degrees Fahrenheit, pulse 64, respiratory rate 22, blood pressure 126/88, O2 saturation 100%. HEENT: Normocephalic, atraumatic. Anicteric. Pupils equal, round, and reactive to light. Extraocu lar movements are intact. Oropharynx is clear. Neck: Supple. No masses. Respirations: Clear to auscultation bilaterally. Cardiac: Regular rate and rhythm. No gallops. Gastrointestinal: Positive bowel sounds. Soft, nondistended. Tender in midepigastric right upper q uadrant with mild Mari sign. No hepatosplenomegaly noted. No rebound or peritoneal signs. Extremities: No clubbing, cyanosis, or edema. 2+ pulses Neuro: Alert and oriented x3. Grossly non focal. 5/5 motor strength. Sensation intact to light touch. Laboratory Data: The patient has a white count of 11.6, hemoglobin hematocrit 38.3, MCV o f 94, platelet count of 276, polys of 79%, lymphocytes 15%, monocytes 6%, eosinophils 1%. Patient castillo s a sodium 141, potassium 4.0, chloride 114, bicarb 26, BUN of 9, creatinine of 0.89, glucose 123, ca lcium 8.2, magnesium 2.1, total bilirubin 0.8, AST of 13, ALT of 27, alkaline phosphatase 56, total p rotein 7.7, albumin 4.0, globulin 3.7, lipase 97, slightly elevated. UA was negative. Ultrasound of abdomen revealed cholelithiasis with extensive gallbladder stones and sludge. Common bile duct norm al at [address] abdomen and pelvis revealed gallbladder distention, otherwise negative. MRCP reveale d gallstones and gallbladder fluid around gallbladder suggesting cholecystitis. No stones in common bile duct with a normal caliber common bile duct. Impression: 1.Gallstone pancreatitis with midepigastric right upper quadrant pain radiating to back over a week, worse over the past 24 hours, especially after 8 p.m. yesterday after eating spaghetti. No nausea, vomiting, fevers, chills. She has been taking weight loss shots called for weight loss of 10 to 20-pound weight loss, probably contributing to the formation of stones and her gallbladder dis ease currently. MRCP again showing gallstones and gallbladder fluid around gallbladder. No stones i n common bile duct. 2.Cholelithiasis and cholecystitis. 3.History of x2. Recommendation: 1.IV fluids. 2.P.r.n. pain medications. 3.Keep patient n.p.o. except ice chips and water. 4.Monitor labs. 5.Agree with surgery consultation. BETO/DESIREE Voice ID: [id number] Report ID: [id number]
== END 2022-10-14 10:55 | disposition home or self-care (01) | DRG 417 ==
LOC: ER 21:17 → ERHOLD 10-12 00:23 → 3RD-ICU 10-12 08:10 → 2ND 10-12 19:45
PROVIDERS: ADMIT Hospitalist; ATTEND Hospitalist
PROC: 0FT44ZZ Resection of Gallbladder, Percutaneous Endoscopic Approach (ICD-10-PCS; principal; 2022-10-12)
PROC: 0WQF0ZZ Repair Abdominal Wall, Open Approach (ICD-10-PCS; 2022-10-12)
DX: K80.00 Calculus of gallbladder with acute cholecystitis without obstruction (principal); K85.10 Biliary acute pancreatitis without necrosis or infection; K42.0 Umbilical hernia with obstruction, without gangrene; K59.00 Constipation, unspecified; E83.51 Hypocalcemia; F17.210 Nicotine dependence, cigarettes, uncomplicated; Z78.0 Asymptomatic menopausal state
CPT/HCPCS: 36415; 74177; 74181; 76705; 80048; 80053; 81003; 83690; 83735; 85025; 88302; 88304; 94010; 96365; 96375; 99285; J0696; J0744; J1100; J1170; J1650; J2001; J2250; J2405; J2543; J2704; J3010; J3480; J7030; J7120; Q9967

== ENCOUNTER 2022-10-14 20:20 | Emergency (ER) | payer BC ==
--- NOTE | 2022-10-14 20:56 | EDPHYS ---
Physician Documentation [facility] Name: Alexandra Valdez Age: 46 yrs Sex: Female : 1975 Arrival Date: 10/14/2022 Time: 20:20 Bed 14 Private MD: ED Physician Eric Kohli HPI: 10/15 00:48 This 46 yrs old Female presents to ER via Ambulatory with complaints of Fall Injury, ms3 Post Surgical Pain, Post Surgical Bleeding. 00:48 46-year-old female with past medical history of endometriosis presents for bleeding ms3 from her surgical site. Patient states she was discharged from the hospital the day after having cholecystectomy yesterday and pancreatitis. Patient states after getting home she fell. Patient states the fall was approximately 1.5 hours prior to arrival patient rates her abdominal pain as a 9/10. Patient denies alleviating or inciting factors.. Historical: - Allergies: 10/14 20:29 No Known Allergies; ap3 - Home Meds: 20:27 None [Active]; ap3 - PMHx: 20:27 Endometrosis; ap3 - PSHx: 20:27 section; ap3 - Immunization history:: Client reports receiving the 2nd dose of the Covid vaccine. - Social history:: Smoking status: Patient reports the use of cigarette tobacco products, smokes one pack cigarettes per day. ROS: 10/15 00:48 Constitutional: Negative for fever, and chills. Neck: Negative for injury, pain, and ms3 swelling, Cardiovascular: Negative for chest pain, and palpitations. Respiratory: Negative for shortness of breath, cough, wheezing, and pleuritic chest pain. Abdomen/GI: Positive for abdominal pain, No blood on bandages. All other systems are negative. Exam: 00:48 Constitutional: This is a well developed, well nourished patient who is awake, alert, ms3 and in no acute distress. Head/Face: Normocephalic, atraumatic. Neck: Trachea midline, no cervical lymphadenopathy. Supple, full range of motion without nuchal rigidity, or vertebral point tenderness. No Meningismus. Chest/axilla: Normal chest wall appearance and motion. Nontender with no deformity. Cardiovascular: Regular rate and rhythm with a normal S1 and S2. No gallops, murmurs, or rubs. Normal PMI, no JVD. No pulse deficits. Respiratory: Lungs have equal breath sounds bilaterally, clear to auscultation and percussion. No rales, rhonchi or wheezes noted. No increased work of breathing, no retractions or nasal flaring. 00:48 Skin: Warm, dry with normal turgor. Normal color with no rashes, no lesions, and no evidence of cellulitis. 00:48 Abdomen/GI: Inspection: Blood on dressing around CANDIDO drain insertion, no active bleeding. Surgical incision with 2 caitie without active bleeding., Bowel sounds: normal, Palpation: mild abdominal tenderness. Vital Signs: 10/14 20:24 BP 132 / 94; Pulse 73; Resp 19; Temp 97.8; Pulse Ox 100% ; Weight 81.65 kg; ap3 20:24 Pain 9/10; ap3 21:04 BP 132 / 90; Pulse 72; Resp 17 S; Pulse Ox 100% ; ha1 20:24 Pain Scale: Adult ap3 MDM: 20:48 Patient medically screened. ms3 10/15 00:48 Differential diagnosis: sprain, strain, Post op pain. Data reviewed: vital signs, ms3 nurses notes, and as a result, I will discharge patient. Management of patient was discussed with the following: Discussed case with Dr Mueller. He will see patient in clinic.. Counseling: I had a detailed discussion with the patient and/or guardian regarding the historical points, exam findings, and any diagnostic results supporting the discharge/admit diagnosis, the need for outpatient follow up, to return to the emergency department if symptoms worsen or persist or if there are any questions or concerns that arise at home. Special discussion: I discussed with the patient/guardian in detail that at this point there is no indication for admission to the hospital. It is understood, however, that if the symptoms persist or worsen the patient needs to return immediately for re-evaluation. ED course: Discussed physical exam findings and discussion with Dr. Mueller with patient and her . Patient to follow-up Dr. Mueller on Sunday. All questions were answered. Return precautions discussed include worsening symptoms, or any other concerns. Administered Medications: No medications were administered Disposition Summary: 10/14/22 20:55 Discharge Ordered Location: Home ms3 Condition: Stable ms3 Diagnosis - Fall on same level, unspecified ms3 - Post operative bleeding ms3 Followup: ms3 - With: Uriel Mueller MD - When: 1 - 2 days - Reason: Recheck today's complaints Discharge Instructions: - Discharge Summary Sheet ms3 - Fall Prevention in the Home, Adult ms3 Forms: - Medication Reconciliation Form ms3 - Thank You Letter ms3 - Antibiotic Education ms3 - Prescription Opioid Use ms3 - Patient Portal Instructions ms3 - Leadership Thank You Letter ms3 Signatures: Jessica Verdin RN RN ap3 Eric Kohli DO DO ms3 Corrections: (The following items were deleted from the chart) 10/14 20:28 20:27 Home Meds: phentermine oral; ap3 ap3 20:28 20:27 Home Meds: Wegovy 0.5 mg/0.5 mL subcutaneous Pen Injector every week; ap3 ap3
--- NOTE | 2022-10-14 20:56 | ER ---
Nurse's Notes [facility] Name: Alexandra Valdez Age: 46 yrs Sex: Female : 1975 Arrival Date: 10/14/2022 Time: 20:20 Bed 14 Private MD: Diagnosis: Fall on same level, unspecified;Post operative bleeding Presentation: 10/14 20:24 Chief complaint: Patient states: had abdominal sx (shea \\T\\ hernia repair)earlier today. ap3 patient reports falling when going to the restroom today and is having pain at the sx locations. Coronavirus screen: At this time, the client does not indicate any symptoms associated with coronavirus-19. Ebola Screen: No symptoms or risks identified at this time. Initial Sepsis Screen: Does the patient meet any 2 criteria? No. Patient's initial sepsis screen is negative. Does the patient have a suspected source of infection? Yes: Other: recent sx. Risk Assessment: Do you want to hurt yourself or someone else? Patient reports no desire to harm self or others. Onset of symptoms was October 14, 2022. 20:24 Method Of Arrival: Ambulatory ap3 20:24 Acuity: MAIKOL 3 ap3 Triage Assessment: 20:28 General: Appears uncomfortable, Behavior is calm, cooperative, appropriate for age. ap3 Pain: Complains of pain in abdomen. Neuro: Level of Consciousness is awake, alert, obeys commands, Oriented to person, place, time, situation. Cardiovascular: Patient's skin is warm and dry. Respiratory: Airway is patent Respiratory effort is even, unlabored, Respiratory pattern is regular, symmetrical. GI: post sx drain from shea sx earlier today Reports lower abdominal pain, upper abdominal pain. Historical: - Allergies: 20:29 No Known Allergies; ap3 - Home Meds: 20:27 None [Active]; ap3 - PMHx: 20:27 Endometrosis; ap3 - PSHx: 20:27 section; ap3 - Immunization history:: Client reports receiving the 2nd dose of the Covid vaccine. - Social history:: Smoking status: Patient reports the use of cigarette tobacco products, smokes one pack cigarettes per day. Screenin:29 [facility] ED Fall Risk Assessment (Adult) History of falling in the last 3 months, ap3 including since admission Yes- single mechanical fall (1 pt) Confusion or Disorientation No (0 pts) Intoxicated or Sedated No (0 pts) Impaired Gait No (0 pts) Mobility Assist Device Used No (0 pt) Altered Elimination No (0 pt). Abuse screen: Denies threats or abuse. Nutritional screening: No deficits noted. Tuberculosis screening: No symptoms or risk factors identified. Assessment: 20:30 General: Appears comfortable, Behavior is calm, cooperative. Pain: Complains of pain in ha1 abdomen Pain does not radiate. Pain currently is 4 out of 10 on a pain scale. Neuro: Level of Consciousness is awake, alert, obeys commands, Oriented to person, place, time, situation. Cardiovascular: Patient's skin is warm and dry. Respiratory: Airway is patent Respiratory effort is even, unlabored, Respiratory pattern is regular, symmetrical. GI: Post surgery, gallbladder removed pt. states " I fell and I just want to make sure everything is ok". Vital Signs: 20:24 BP 132 / 94; Pulse 73; Resp 19; Temp 97.8; Pulse Ox 100% ; Weight 81.65 kg; ap3 20:24 Pain 9/10; ap3 21:04 BP 132 / 90; Pulse 72; Resp 17 S; Pulse Ox 100% ; ha1 20:24 Pain Scale: Adult ap3 ED Course: 20:24 Patient arrived in ED. jj6 20:27 Triage completed. ap3 20:30 Eric Kohli DO is Attending Physician. ms3 20:30 Arm band placed on right wrist. ap3 20:30 Patient has correct armband on for positive identification. Placed in gown. Bed in low ha1 position. Call light in reach. Side rails up X 1. 20:54 Uriel Mueller MD is Referral Physician. ms3 21:01 Laura Reeys, WENDI is Primary Nurse. ha1 21:05 No provider procedures requiring assistance completed. Patient did not have IV access ha1 during this emergency room visit. 21:06 Provided Education on: FOLLOW UP WITH Dr. Mueller. ha1 Administered Medications: No medications were administered Medication: 21:06 VIS not applicable for this client. ha1 Outcome: 20:55 Discharge ordered by . ms3 21:06 Discharged to home ambulatory. ha1 21:06 Condition: stable 21:06 Discharge instructions given to patient, Instructed on discharge instructions, follow up and referral plans. Demonstrated understanding of instructions, follow-up care. 21:07 Patient left the ED. ha1 Signatures: Jessica Verdin RN RN ap3 Eric Kohli DO DO ms3 Meliza Noel jj6 Laura Reyes RN RN ha1 Corrections: (The following items were deleted from the chart) 20: 20:27 Home Meds: phentermine oral; ap3 ap3 20:28 20:27 Home Meds: Wegovy 0.5 mg/0.5 mL subcutaneous Pen Injector every week; ap3 ap3
[2022-10-14 21:13] VITALS: TEMP 97.8; O2SAT 100
[2022-10-14 21:14] VITALS: BP 132/90
== END 2022-10-14 21:07 | disposition home or self-care (01) ==
LOC: ER 20:20
DX: K91.841 Postprocedural hemorrhage of a digestive system organ or structure following other procedure (principal); W18.30XA Fall on same level, unspecified, initial encounter; Z90.49 Acquired absence of other specified parts of digestive tract
CPT/HCPCS: 99282